=== PATIENT | male | born 1995 | race Caucasian/White ===

== ENCOUNTER 2018-07-11 21:03 | Emergency (ER) | payer SELFPAY ==
[2018-07-11] MEDS ORDERED: ALPRAZolam 0.25 MG TAB PO ONE (21:25)
--- NOTE | 2018-07-11 21:40 | RAD ---
EXAM:Chest,2 Views CLINICAL INDICATION: Shortness of breath COMPARISON: There is no previous study for comparison. FINDINGS:Two views of the chest were obtained. The heart size is normal. The pulmonary vascularity is unremarkable. The lungs are clear. There is no consolidation, infiltrate, pleural effusion, or pneumothorax. IMPRESSION: No evidence of active pulmonary disease. Electronically signed by: Renato Campbell MD 07/11/2018 9:39 PM [facility]
[2018-07-11] MEDS ORDERED: ALPRAZolam 0.5 MG TAB ONE (21:41)
[2018-07-11 22:27] VITALS: BP 120/69
--- NOTE | 2018-07-11 22:34 | ED.PDOC ---
History of Present Illness - General Chief Complaint: Behavioral / Psych Stated Complaint: feeling short of breath anxious. Time Seen by Provider: 07/11/18 21:24 Source: patient Exam Limitations: no limitations - History of Present Illness Initial Comments: the patient is a 23-year-old male with a long-standing history of severe anxiety presenting with severe anxiety and some shortness of breath. Symptoms started about half an hour prior. Patient gets so worked up that he walked outside without shoes on and got a lot of stickers in his foot. These have been removed. Timing/Duration: 1/2 hour Severity: moderate Improving Factors: nothing Worsening Factors: nothing Associated Symptoms: shortness of breath Allergies/Adverse Reactions: Allergies NO KNOWN ALLERGY Allergy (Verified 07/11/18 21:59) Home Medications: Ambulatory Orders Buspirone HCl 10 mg PO BID 07/11/18 Risperidone 2 mg PO BID 07/11/18 Review of Systems - Review of Systems Constitutional: States: no symptoms reported EENTM: States: no symptoms reported Respiratory: States: short of breath Cardiology: States: no symptoms reported Gastrointestinal/Abdominal: States: no symptoms reported Genitourinary: States: no symptoms reported Musculoskeletal: States: no symptoms reported Skin: States: no symptoms reported Neurological: States: anxiety Endocrine: States: no symptoms reported All other Systems: No Change from Baseline Past Medical History (General) - Patient Medical History Surgical History: other - Vaccination History Hx Tetanus, Diphtheria Vaccination: No Hx Influenza Vaccination: No Hx Pneumococcal Vaccination: No - Social History Hx Tobacco Use: Yes Hx Alcohol Use: No - Triage Comment ED Triage Comment: Pt was brought in after stating he stated feeling short of breath and "like someone holding me under water, like Im dying." Pt was inpatient at [id number], just got released 2 days ago. Pt is staying with his mother, and is off his medications. 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 Pt mother reports he lost his father who was killed in [place] few years ago, and pt has not dealt very well to this. Family Medical History - Family History Mother Living Status: Still Living Hx Family Hypertension: Yes Physical Exam - Physical Exam General Appearance: Alert, Anxious Eye Exam: bilateral normal Ears, Nose, Throat: hearing grossly normal Neck: full range of motion, supple Respiratory: lungs clear, normal breath sounds, no respiratory distress, no accessory muscle use Cardiovascular/Chest: normal peripheral pulses, regular rate, rhythm, no edema Peripheral Pulses: radial,right: 2+, radial,left: 2+ Gastrointestinal/Abdominal: non tender, soft Rectal Exam: deferred Back Exam: normal inspection Extremity: normal range of motion, non-tender, normal inspection, no pedal edema, normal capillary refill 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 Patient responded well to a dose of Xanax and a dose of Maalox. EKG and chest x-ray were reassuring. The patient will be allowed to return home. He does need follow-up with his primary care doctor. Chest x-ray shows no evidence of any acute pathology. EKG shows normal sinus rhythm at 79 bpm. Possibly early right bundle branch block and mild LVH. He has very mild J-point elevation in anterior leads but no definitive ST segment elevation or depression otherwise. No T-wave inversions. Normal axis. Departure - Departure Clinical Impression: Anxiety Dyspnea Qualifiers: Dyspnea type: other forms of dyspnea Qualified Code(s): R06.09 - Other forms of dyspnea Disposition: Discharge to Home or Self Care Condition: Fair Departure Forms: ED Discharge - Pt. Copy, Patient Portal Self Enrollment Instructions: Shortness of Breath (Dyspnea) (DC), Anxiety, Adult (DC), Panic Disorder Diet: regular diet Activity: increase activity as tolerated Home Medications: Ambulatory Orders Buspirone HCl 10 mg PO BID 07/11/18 Risperidone 2 mg PO BID 07/11/18 Additional Instructions: Continue home medications. Follow-up with primary care doctor in the coming week. Obtained some liquid Maalox or Mylanta to have on hand in case of any reflux symptoms. ER warnings.
[2018-07-11 22:46] VITALS: TEMP 97.1; O2SAT 99
== END 2018-07-11 22:46 | disposition home or self-care (01) ==
LOC: ER 21:03
DX: R06.02 Shortness of breath (principal); F41.9 Anxiety disorder, unspecified